=== PATIENT | female | born 1975 | race Caucasian/White ===

== ENCOUNTER 2016-07-20 22:26 | Emergency (ER) | payer MEDICAID ==
[~2016-07-20] VITALS: Ht 165.1 cm; Wt 72.6 kg
[~2016-07-20 22:26] MED LIST: CEPH500C2 PO; FERR-57 PO
[2016-07-20 22:30] VITALS: BP 147/94; PULSE 87; RESP 16; TEMP 98.1; O2SAT 99
--- NOTE | 2016-07-20 22:30 | NUR ---
Patient to ER bed 7 to gown for evaluation. Side rails up. Report given to Kelly WARD.
--- NOTE | 2016-07-20 22:41 | NUR ---
Patient to ER C/O severe headache 10/10 occipital area for the past week "on and off" radiating to lower back with tingling posterior thighs and right arm pain, also C/O mild photophobia and weakness. Patient states that she had these episodes in the past. Patient denies N/V, afebrile, denies blurry vision. AAOx4, unlabored breathing, no signs of acute distress.
[2016-07-20 23:23] LABS: BILIRUBIN,URINE NEGATIVE (NEGATIVE); BLOOD, URINE NEGATIVE (NEGATIVE); CLARITY/URINE CLEAR (CLEAR); COLOR,URINE YELLOW (YELLOW); GLUCOSE,URINE NEGATIVE (NEGATIVE); KETONES,URINE NEGATIVE (NEGATIVE); LEUKOCYTE ESTERASE ,URINE NEGATIVE (NEGATIVE); NITRITE, URINE NEGATIVE (NEGATIVE); PH,URINE 7.5 (5.0-8.0); PROTEIN URINE NEGATIVE (NEGATIVE); UROBILINOGEN,URINE 0.2 (0.2-1.0)
--- NOTE | 2016-07-20 23:30 | NUR ---
Dr. Carver at bedside to examine pt and discuss plan of care.
--- NOTE | 2016-07-20 23:38 | NUR ---
# 22 gauge angiocath placed to left hand. Use of asceptic technique. Opsite placed over site. Blood return noted. Flushed with 10 cc of normal saline. No evidence of infiltration noted. Patient tolerated well.
[2016-07-20] MEDS ORDERED: NACL 0.9% 1,000 ML IV ONE (23:45)
[2016-07-20] MEDS ORDERED: DIPHENHYDRAMINE INJ 50 MG/ML VIAL IVP ONE (23:45)
[2016-07-20] MEDS ORDERED: PROCHLORPERAZINE EDISYLATE 10 MG/2 ML VIAL IVP ONE (23:45)
--- NOTE | 2016-07-21 00:19 | NUR ---
ER MD Carver at bedside discussing plan of care
[2016-07-21 01:03] VITALS: BP 136/81; PULSE 74; RESP 16; TEMP 97.9; O2SAT 98
--- NOTE | 2016-07-21 01:03 | NUR ---
Patient given written and verbal discharge instructions and verbalizes understanding. ER MD Carver discussed with patient the results and treatment provided. Patient in stable condition. ID arm band removed. IV catheter removed intact and dressing applied, no active bleeding. Rx of norco & motrin given. Patient educated on pain management and to follow up with PMD. Pain Scale 0/10. Opportunity for questions provided and answered.
== END 2016-07-21 01:03 | disposition home or self-care (01) ==
LOC: SED 22:26
DX: R51 Headache (principal); R11.2 Nausea with vomiting, unspecified
CPT/HCPCS: 81003; 96361; 96374; 96375; 99284; J0780; J1200; J7030 ×2

== ENCOUNTER 2018-07-06 17:08 | Emergency (ER) | payer MEDICAID ==
[~2018-07-06] VITALS: Ht 165.1 cm; Wt 72.6 kg
[2018-07-06 17:17] VITALS: BP_SYST 151
[2018-07-06 18:07] VITALS: BP_SYST 133
== END 2018-07-06 18:28 | disposition home or self-care (01) ==
LOC: SED 17:08
DX: N39.0 Urinary tract infection, site not specified (principal); I10 Essential (primary) hypertension
CPT/HCPCS: 99283

== ENCOUNTER 2020-01-08 20:17 | Emergency (ER) | payer MEDICAID ==
[~2020-01-08] VITALS: Ht 165.1 cm; Wt 74.8 kg
[~2020-01-08 20:17] MED LIST changes: -CEPH500C2 PO; +PROV10 PO
[2020-01-08 20:39] VITALS: BP_SYST 153
[2020-01-08] MEDS: NACL 0.9% 1,000 ML IV ONE (21:15)
[2020-01-08 22:06] LABS: BASOPHILS % (AUTO) 0.6 % (0.0-2.0); EOSINOPHILS # (AUTO) 0.1 K/uL (0.0-0.4); EOSINOPHILS % (AUTO) 1.1 % (0.0-4.0); HEMATOCRIT 36.8 % (36-48); HEMOGLOBIN 12.4 g/dL (12.0-16.0); LYMPHOCYTES # (AUTO) 1.7 K/uL (1.0-5.5); LYMPHOCYTES % (AUTO) 26.9 % (20.5-51.5); MEAN CORPUSCULAR HEMOGLOBIN 30 pg (27-31); MEAN CORPUSCULAR HGB CONC 34 % (32-36); MEAN CORPUSCULAR VOLUME 90 fL (79.0-98.0); MONOCYTES # (AUTO) 0.4 K/uL (0.0-1.0); MONOCYTES % (AUTO) 6.8 % (1.7-9.3); NEUTROPHILS % (AUTO) 64.6 % (40.0-70.0); PLATELET COUNT (AUTO) 223 K/uL (130-430); RED CELL DISTRIBUTION WIDTH 13.9 % (9.0-15.0); WHITE BLOOD COUNT (AUTO) 6.2 K/uL (4.8-10.8)
[2020-01-08 22:08] LABS: CALCIUM 8.7 mg/dL (8.4-11.0); CREATININE 0.88 mg/dL (0.55-1.30); POTASSIUM 3.9 mmol/L (3.5-5.1)
[2020-01-08 22:14] LABS: ALBUMIN 3.7 g/dL (3.4-4.8); TOTAL BILIRUBIN 0.5 mg/dL (0.0-1.0)
[2020-01-08 22:56] LABS: BILIRUBIN,URINE NEGATIVE (NEGATIVE); BLOOD, URINE 3+ (NEGATIVE); CLARITY/URINE TURBID (CLEAR); COLOR,URINE RED (YELLOW); GLUCOSE,URINE NEGATIVE (NEGATIVE); KETONES,URINE NEGATIVE (NEGATIVE); LEUKOCYTE ESTERASE ,URINE 2+ (NEGATIVE); NITRITE, URINE POSITIVE (NEGATIVE); PROTEIN URINE 2+ (NEGATIVE); UROBILINOGEN,URINE 0.2 (0.2-1.0)
[2020-01-08 23:04] LABS: RBC,URINE >100 /HPF (0-3)
[2020-01-08 23:06] LABS: BACTERIA,URINE MANY /HPF (None Seen)
[2020-01-08] MEDS ORDERED: cefTRIAXone 1 GM VIAL ONE (23:45)
[2020-01-08] MEDS: cefTRIAXone 1 GM in D5W 50 ML IV ONE (23:49)
[2020-01-09 01:47] VITALS: BP_SYST 128
== END 2020-01-09 01:47 | disposition home or self-care (01) ==
LOC: SED 20:17
DX: N93.9 Abnormal uterine and vaginal bleeding, unspecified (principal); N39.0 Urinary tract infection, site not specified; I10 Essential (primary) hypertension; Z88.5 Allergy status to narcotic agent
CPT/HCPCS: 36415; 76830-TC; 76857; 80053; 81000-TC; 81025; 85025; 87086; 96365; 99284; J0696

== ENCOUNTER 2020-01-27 18:02 | Emergency (ER) | payer MEDICAID ==
[~2020-01-27] VITALS: Ht 165.1 cm; Wt 72.6 kg
[2020-01-27 18:32] VITALS: BP_SYST 162
--- NOTE | 2020-01-27 18:40 | NUR ---
Patient triaged and placed in waiting room. VSS and patient appears in no acute distress at this time. Accompanied by self , awaiting available bed, and MD notified of need for MSE.
[2020-01-27 19:14] LABS: BASOPHILS % (AUTO) 0.6 % (0.0-2.0); EOSINOPHILS # (AUTO) 0.1 K/uL (0.0-0.4); EOSINOPHILS % (AUTO) 2.3 % (0.0-4.0); HEMATOCRIT 33.9 % (36-48); HEMOGLOBIN 11.2 g/dL (12.0-16.0); LYMPHOCYTES # (AUTO) 1.2 K/uL (1.0-5.5); MEAN CORPUSCULAR HEMOGLOBIN 29 pg (27-31); MEAN CORPUSCULAR HGB CONC 33 % (32-36); MEAN CORPUSCULAR VOLUME 89 fL (79.0-98.0); MONOCYTES # (AUTO) 0.4 K/uL (0.0-1.0); MONOCYTES % (AUTO) 9.5 % (1.7-9.3); NEUTROPHILS # (AUTO) 2.8 K/uL (1.8-7.7); NEUTROPHILS % (AUTO) 61.6 % (40.0-70.0); PLATELET COUNT (AUTO) 217 K/uL (130-430); RED BLOOD CELL COUNT(AUTO) 3.81 MIL/uL (4.2-6.2); RED CELL DISTRIBUTION WIDTH 13.6 % (9.0-15.0); WHITE BLOOD COUNT (AUTO) 4.5 K/uL (4.8-10.8)
[2020-01-27 19:17] LABS: CALCIUM 8.8 mg/dL (8.4-11.0); CREATININE 1.21 mg/dL (0.55-1.30)
[2020-01-27 19:23] LABS: ALBUMIN 3.4 g/dL (3.4-4.8); TOTAL BILIRUBIN 0.3 mg/dL (0.0-1.0)
--- NOTE | 2020-01-27 19:56 | NUR ---
Patient to ER bed 3 to gown for evaluation. Side rails up.
--- NOTE | 2020-01-27 20:45 | NUR ---
ER Dr. Villalta at bedside examining patient.
--- NOTE | 2020-01-27 20:47 | NUR ---
pt a&o x4 c/o of vaginal bleeding and left lower quadrant suprapubic abdominal pain that has come and gone since she was here on the 07 of January. pt had an ultrasound this morning in [place], dx dysfunctional uterine bleeding, cyst. pt reports soaking through 2 pads today. pt is yi speaking.
[2020-01-27] MEDS ORDERED: NACL 0.9% 1,000 ML IV ONE (20:57)
[2020-01-27] MEDS ORDERED: KETOROLAC TROMETHAMINE 30 MG VIAL IVP ONE (21:00)
--- NOTE | 2020-01-27 21:03 | NUR ---
lab at bedside.
[2020-01-27 21:27] LABS: BILIRUBIN,URINE NEGATIVE (NEGATIVE); BLOOD, URINE 3+ (NEGATIVE); GLUCOSE,URINE NEGATIVE (NEGATIVE); KETONES,URINE NEGATIVE (NEGATIVE); LEUKOCYTE ESTERASE ,URINE TRACE (NEGATIVE); NITRITE, URINE NEGATIVE (NEGATIVE); PROTEIN URINE 2+ (NEGATIVE); UROBILINOGEN,URINE 0.2 (0.2-1.0)
[2020-01-27 21:29] LABS: INR 0.9 (0.8-1.2); PROTHROMBIN TIME 9.4 SECS (9.5-12.5)
[2020-01-27 21:30] LABS: CLARITY/URINE HAZY (CLEAR); COLOR,URINE RED (YELLOW)
--- NOTE | 2020-01-27 21:30 | NUR ---
# 20 gauge angiocath placed to RAC. Use of asceptic technique. Opsite placed over site. Blood return noted. Flushed with 10 cc of normal saline. No evidence of infiltration noted. Patient tolerated well.
[2020-01-27 21:32] LABS: BACTERIA,URINE FEW /HPF (None Seen); RBC,URINE >100 /HPF (0-3)
[2020-01-27 21:33] LABS: MUCUS,URINE None Seen /LPF (None Seen)
--- NOTE | 2020-01-27 21:39 | NUR ---
urine negative prior to administration of toradol 30mg IVP.
--- NOTE | 2020-01-27 22:13 | NUR ---
pt reports pain decreased to a 4 out of 10 after medication administration.
--- NOTE | 2020-01-27 23:30 | NUR ---
pt ambulated to restroom with steady gait.
--- NOTE | 2020-01-28 00:34 | NUR ---
Patient given written and verbal discharge instructions and verbalizes understanding. ER MD discussed with patient the results and treatment provided. Patient in stable condition. ID arm band removed. IV catheter removed intact and dressing applied, no active bleeding. Rx of provera and ibuprofen given. Patient educated on pain management and to follow up with PMD. Pain Scale 0/10. Opportunity for questions provided and answered. Medication side effect fact sheet provided.
[2020-01-28 00:35] VITALS: BP_SYST 126
== END 2020-01-28 00:34 | disposition home or self-care (01) ==
LOC: SED 18:02
DX: N93.8 Other specified abnormal uterine and vaginal bleeding (principal); R10.2 Pelvic and perineal pain; I10 Essential (primary) hypertension; Z88.6 Allergy status to analgesic agent
CPT/HCPCS: 36415; 80053; 81000; 81025; 85025; 85610; 85730; 86900; 86901; 96361 ×2; 96374; 99283; J1885; J7030

== ENCOUNTER 2021-08-01 23:41 | Emergency (ER) | payer MEDICAID ==
[~2021-08-01] VITALS: Ht 165.1 cm; Wt 68.0 kg
[~2021-08-01 23:41] MED LIST changes: +MEDR10TA72 PO; -PROV10 PO
[2021-08-02 00:24] VITALS: BP_SYST 149
--- NOTE | 2021-08-02 00:24 | NUR ---
Patient came to the ER with complaints of rt eye abnormality. Reports she woke up with redness to the right eye. Reports same symptom before but it involved the left eye. Does report associated headache but no other fevers or flulike symptoms. The symptoms are constant. Reports high diastolic BP at home. Patient breathing easy, not in any distress. Patient ambulates with steady gait. ER MD to evaluate.
--- NOTE | 2021-08-02 00:36 | NUR ---
Patient triaged and placed in waiting room. VS checked and patient appears in no acute distress at this time. Accompanied by family, awaiting available bed, and MD notified of need for MSE.
--- NOTE | 2021-08-02 02:04 | NUR ---
ER Dr. Armando in triage examining patient.
[2021-08-02 02:55] VITALS: BP_SYST 145
--- NOTE | 2021-08-02 02:55 | NUR ---
Patient given written and verbal discharge instructions and verbalizes understanding. ER MD discussed with patient the care provided. Patient in stable condition. ID arm band removed. No Rx given. Patient educated on pain management and to follow up with PMD. Opportunity for questions provided and answered.
== END 2021-08-02 02:55 | disposition home or self-care (01) ==
LOC: SED 23:41
DX: H11.31 Conjunctival hemorrhage, right eye (principal)
CPT/HCPCS: 99281

== ENCOUNTER 2022-02-03 03:03 | Emergency (ER) | payer MEDICAID ==
[~2022-02-03] VITALS: Ht 167.6 cm; Wt 56.7 kg
[2022-02-03 03:05] VITALS: BP_SYST 123
[2022-02-03] MEDS ORDERED: LORazepam 2 MG/ML VIAL IM ONE (03:30)
[2022-02-03 04:20] VITALS: BP_SYST 121
== END 2022-02-03 03:45 | disposition home or self-care (01) ==
LOC: SED 03:03
DX: F41.9 Anxiety disorder, unspecified (principal); R00.2 Palpitations; R06.02 Shortness of breath; I10 Essential (primary) hypertension; Z88.6 Allergy status to analgesic agent; Z79.899 Other long term (current) drug therapy
CPT/HCPCS: 99283; 96372; J2060

== ENCOUNTER 2022-07-26 16:46 | Inpatient (IN) | payer MEDICAID ==
[~2022-07-26] VITALS: Ht 165.1 cm; Wt 59.1 kg
[~2022-07-26 16:46] MED LIST changes: +FAMO-132 PO; +ONDA-8 TL
[2022-07-26 17:05] VITALS: BP_SYST 133
[2022-07-26] MEDS ORDERED: KETOROLAC TROMETHAMINE 60 MG/2 ML VIAL IM ONE (19:15)
[2022-07-26 19:26] LABS: BILIRUBIN,URINE NEGATIVE (NEGATIVE); BLOOD, URINE NEGATIVE (NEGATIVE); CLARITY/URINE CLEAR (CLEAR); COLOR,URINE YELLOW (YELLOW); GLUCOSE,URINE NEGATIVE (NEGATIVE); KETONES,URINE 1+ (NEGATIVE); LEUKOCYTE ESTERASE ,URINE NEGATIVE (NEGATIVE); NITRITE, URINE NEGATIVE (NEGATIVE); PROTEIN URINE TRACE (NEGATIVE); UROBILINOGEN,URINE 0.2 (0.2-1.0)
[2022-07-26 19:27] LABS: HCG,QUAL RESULT NEGATIVE (NEGATIVE)
[2022-07-26] MEDS ORDERED: ONDANSETRON HCL 4 MG/2 ML VIAL IVP ONE (19:30)
[2022-07-26] MEDS ORDERED: PANTOPRAZOLE SODIUM 40 MG/VIAL (PROTONIX) IVP ONE (19:30)
[2022-07-26] MEDS ORDERED: NACL 0.9% 1,000 ML IV ONE (19:30)
[2022-07-26] MEDS ORDERED: KETOROLAC TROMETHAMINE 30 MG VIAL IVP ONE (19:30)
[2022-07-26 19:32] LABS: BACTERIA,URINE FEW /HPF (None Seen); MUCUS,URINE None Seen /LPF (None Seen); RBC,URINE 0-3 /HPF (0-3); WBC,URINE NONE SEEN /HPF (0-3)
[2022-07-26] MEDS ORDERED: ONDA-8 TL (21:08)
[2022-07-26] MEDS ORDERED: OMEP40CA20 PO (21:08)
[2022-07-26] MEDS ORDERED: LIDOCAINE VISCOUS 2%, 15 ML UDC MM ONE (21:45)
[2022-07-26] MEDS ORDERED: MAG-AL HYDROX/SIMETH 30 ML UDC PO ONE (21:45)
[2022-07-26] MEDS ORDERED: DICYCLOMINE HCL 10 MG CAPSULE PO ONE (21:45)
[2022-07-26] MEDS ORDERED: BELLADONNA ALKALOIDS/PHENOBARB 5 ML UDC PO ONE (21:45)
[2022-07-26] MEDS ORDERED: DICYCLOMINE HCL 10 MG CAPSULE ONE (21:59)
[2022-07-26] MEDS ORDERED: KETOROLAC TROMETHAMINE 15 MG VIAL IVP ONE (23:15)
[2022-07-26 23:48] LABS: BASOPHILS # (AUTO) 0.1 K/uL (0.0-0.2); BASOPHILS % (AUTO) 0.4 % (0.0-2.0); HEMATOCRIT 43.9 % (36-48); HEMOGLOBIN 14.8 g/dL (12.0-16.0); LYMPHOCYTES # (AUTO) 0.5 K/uL (1.0-5.5); LYMPHOCYTES % (AUTO) 4.3 % (20.5-51.5); MEAN CORPUSCULAR HEMOGLOBIN 28 pg (27-31); MEAN CORPUSCULAR HGB CONC 34 % (32-36); MEAN CORPUSCULAR VOLUME 84 fL (79.0-98.0); MONOCYTES # (AUTO) 0.9 K/uL (0.0-1.0); MONOCYTES % (AUTO) 7.6 % (1.7-9.3); NEUTROPHILS # (AUTO) 10.5 K/uL (1.8-7.7); NEUTROPHILS % (AUTO) 87.7 % (40.0-70.0); PLATELET COUNT (AUTO) 59 K/uL (130-430); RED BLOOD CELL COUNT(AUTO) 5.25 MIL/uL (4.2-6.2); RED CELL DISTRIBUTION WIDTH 13.9 % (9.0-15.0); WHITE BLOOD COUNT (AUTO) 11.9 K/uL (4.8-10.8)
[2022-07-27 00:17] LABS: CALCIUM 8.6 mg/dL (8.4-11.0); CREATININE 1.24 mg/dL (0.55-1.30)
[2022-07-27 00:21] LABS: ALBUMIN 3.4 g/dL (3.4-4.8); TOTAL BILIRUBIN 2.3 mg/dL (0.0-1.0)
[2022-07-27] MEDS: D5NS 1,000 ML IV SCH ×3 (04:45→23:43)
[2022-07-27] MEDS ORDERED: PIPERACILLIN/TAZO 3.375/DEX-IS 50 ML IV ONE (09:00)
[2022-07-27] MEDS ORDERED: ZOLPIDEM TARTRATE 5 MG TABLET PO PRN (10:00)
[2022-07-27] MEDS ORDERED: DOCUSATE SODIUM 100 MG/10 ML UDC PO PRN (10:00)
[2022-07-27] MEDS ORDERED: guaiFENesin/DEXTROMETHORPHAN 10 ML UDC PO PRN (10:00)
[2022-07-27] MEDS ORDERED: ACETAMINOPHEN 500 MG TABLET PO PRN (10:00)
[2022-07-27] MEDS ORDERED: POTASSIUM CHLORIDE 40 MEQ, LIDOCAINE JECT 2% PF 100 MG 50 MG in NS 250 ML IV PRN (11:00)
[2022-07-27 11:39] LABS: PROTHROMBIN TIME 10.4 SECS (9.5-12.5)
[2022-07-27] MEDS ORDERED: PIPERACILLIN/TAZOBACTAM 3.375 GM/VIAL (ZOSYN) IV ONE ×3 (11:39→23:22)
[2022-07-27 11:46] LABS: FREE T4 (FREE THYROXINE) 1.1 ng/dL (0.6-1.6); PHOSPHORUS 2.9 mg/dL (2.7-4.5); THYROID STIMULATING HORMONE 0.71 uIu/mL (0.34-4.82)
[2022-07-27] MEDS: PIPERACILLIN/TAZO 3.375/DEX-IS 50 ML IV SCH ×2 (18:24→23:43)
[2022-07-27] MEDS ORDERED: KETOROLAC TROMETHAMINE 30 MG VIAL ONE (18:30)
[2022-07-27] MEDS: KETOROLAC TROMETHAMINE 30 MG VIAL IVP PRN (18:33)
[2022-07-27 20:42] VITALS: BP_SYST 155
[2022-07-28] MEDS: KETOROLAC TROMETHAMINE 30 MG VIAL IVP PRN (01:24)
[2022-07-28 01:30] VITALS: BP_SYST 147
[2022-07-28] MEDS: D5NS 1,000 ML IV SCH ×3 (04:00→20:00)
[2022-07-28] MEDS: PIPERACILLIN/TAZO 3.375/DEX-IS 50 ML IV SCH ×2 (05:27→13:56)
[2022-07-28] MEDS: ONDANSETRON HCL 4 MG/2 ML VIAL IVP PRN ×3 (05:31→20:14)
[2022-07-28 06:48] LABS: BASOPHILS # (AUTO) 0.1 K/uL (0.0-0.2); BASOPHILS % (AUTO) 0.6 % (0.0-2.0); EOSINOPHILS # (AUTO) 0.2 K/uL (0.0-0.4); EOSINOPHILS % (AUTO) 1.8 % (0.0-4.0); HEMATOCRIT 34.4 % (36-48); HEMOGLOBIN 11.8 g/dL (12.0-16.0); LYMPHOCYTES # (AUTO) 1.8 K/uL (1.0-5.5); LYMPHOCYTES % (AUTO) 21.1 % (20.5-51.5); MEAN CORPUSCULAR HEMOGLOBIN 29 pg (27-31); MEAN CORPUSCULAR HGB CONC 34 % (32-36); MEAN CORPUSCULAR VOLUME 83 fL (79.0-98.0); MONOCYTES # (AUTO) 0.9 K/uL (0.0-1.0); MONOCYTES % (AUTO) 10.6 % (1.7-9.3); NEUTROPHILS # (AUTO) 5.7 K/uL (1.8-7.7); NEUTROPHILS % (AUTO) 65.9 % (40.0-70.0); RED BLOOD CELL COUNT(AUTO) 4.13 MIL/uL (4.2-6.2); WHITE BLOOD COUNT (AUTO) 8.7 K/uL (4.8-10.8)
[2022-07-28] MEDS ORDERED: LISI10TA29 PO (07:07)
[2022-07-28] MEDS ORDERED: HYDR-3919 PO (07:07)
[2022-07-28] MEDS ORDERED: AMLO5TAB4 PO (07:07)
[2022-07-28 07:46] VITALS: BP_SYST 153
[2022-07-28 08:37] LABS: PLATELET COUNT (AUTO) 23 K/uL (130-430)
[2022-07-28 09:21] LABS: ALBUMIN 3.2 g/dL (3.4-4.8); BILIRUBIN,DIRECT 0.3 mg/dL (0.0-0.3); TOTAL BILIRUBIN 1.2 mg/dL (0.0-1.0)
[2022-07-28 11:40] VITALS: BP_SYST 158
[2022-07-28] MEDS ORDERED: DIPHENHYDRAMINE INJ 50 MG/ML VIAL IVP ONE (20:30)
[2022-07-28] MEDS ORDERED: ACETAMINOPHEN 500 MG TABLET PO ONE (20:30)
[2022-07-28] MEDS ORDERED: predniSONE 10 MG TABLET PO ONE (20:30)
[2022-07-28] MEDS: metroNIDAZOLE 500 mg/NS 100 ML IV SCH (23:52)
[2022-07-29] VITALS (8 sets, daily range): BP systolic 130–198
[2022-07-29] MEDS ORDERED: LISINOPRIL 10 MG TABLET (PRINIVIL) PO ONE (00:20)
[2022-07-29] MEDS ORDERED: amLODIPine BESYLATE 10 MG TABLET PO ONE (00:20)
[2022-07-29] MEDS: D5NS 1,000 ML IV SCH ×2 (04:42→11:52)
[2022-07-29] MEDS: metroNIDAZOLE 500 mg/NS 100 ML IV SCH ×2 (05:29→11:52)
[2022-07-29 07:08] LABS: BASOPHILS % (AUTO) 0.6 % (0.0-2.0); EOSINOPHILS % (AUTO) 0.1 % (0.0-4.0); HEMATOCRIT 33.9 % (36-48); LYMPHOCYTES # (AUTO) 0.7 K/uL (1.0-5.5); MEAN CORPUSCULAR HEMOGLOBIN 29 pg (27-31); MEAN CORPUSCULAR HGB CONC 35 % (32-36); MEAN CORPUSCULAR VOLUME 82 fL (79.0-98.0); MONOCYTES # (AUTO) 0.3 K/uL (0.0-1.0); MONOCYTES % (AUTO) 4.1 % (1.7-9.3); NEUTROPHILS # (AUTO) 6.8 K/uL (1.8-7.7); NEUTROPHILS % (AUTO) 86.2 % (40.0-70.0); PLATELET COUNT (AUTO) 63 K/uL (130-430); RED BLOOD CELL COUNT(AUTO) 4.12 MIL/uL (4.2-6.2); RED CELL DISTRIBUTION WIDTH 13.9 % (9.0-15.0); WHITE BLOOD COUNT (AUTO) 7.9 K/uL (4.8-10.8)
[2022-07-29 07:22] LABS: CALCIUM 8.6 mg/dL (8.4-11.0); CREATININE 0.91 mg/dL (0.55-1.30)
[2022-07-29] MEDS ORDERED: cefTRIAXone 1 GM in D5W 50 ML IV SCH (11:00)
[2022-07-29] MEDS: KETOROLAC TROMETHAMINE 30 MG VIAL IVP PRN (11:53)
[2022-07-29] MEDS ORDERED: PRO40 PO (13:44)
[2022-07-29] MEDS ORDERED: METR-154 PO (13:45)
[2022-07-29 15:46] LABS: BILIRUBIN,URINE NEGATIVE (NEGATIVE); BLOOD, URINE NEGATIVE (NEGATIVE); CLARITY/URINE CLEAR (CLEAR); COLOR,URINE YELLOW (YELLOW); GLUCOSE,URINE NEGATIVE (NEGATIVE); KETONES,URINE 1+ (NEGATIVE); LEUKOCYTE ESTERASE ,URINE NEGATIVE (NEGATIVE); NITRITE, URINE NEGATIVE (NEGATIVE); PH,URINE 6.5 (5.0-8.0); PROTEIN URINE NEGATIVE (NEGATIVE)
[2022-07-30] MEDS ORDERED: LISINOPRIL 10 MG TABLET (PRINIVIL) PO SCH (09:00)
[2022-07-30] MEDS ORDERED: amLODIPine BESYLATE 10 MG TABLET PO SCH (09:00)
[2022-07-30 11:07] LABS: FOLATE (FOLIC ACID) 16.3 ng/mL (>3.0)
== END 2022-07-29 16:23 | disposition home or self-care (01) | DRG 249 ==
LOC: SED 16:46 → SMU 07-27 03:57 → STU 07-29 00:26
PROVIDERS: ADMIT Family Medicine; ATTEND Family Medicine
PROC: 30233R1 Transfusion of Nonautologous Platelets into Peripheral Vein, Percutaneous Approach (ICD-10-PCS; principal; 2022-07-29)
DX: A09 Infectious gastroenteritis and colitis, unspecified (principal); K81.0 Acute cholecystitis; D69.6 Thrombocytopenia, unspecified; I10 Essential (primary) hypertension; N20.0 Calculus of kidney; R74.01 Elevation of levels of liver transaminase levels; Z20.822 Contact with and (suspected) exposure to COVID-19; N28.1 Cyst of kidney, acquired; Z88.5 Allergy status to narcotic agent; Z79.899 Other long term (current) drug therapy
CPT/HCPCS: 36415; 71045; 74181; 76376; 76705; 76856-TC; 78226; 80048; 80053; 80061; 80076; 81000; 81003; 82150; 82607; 82746; 83037; 83690; 83735; 83880; 84100; 84439; 84443; 84703; 85025; 85610-TC; 85730-TC; 86900; 86901; 93005; 96361; 96374; 96375; 96376; 99285; A9537; C9113; J0696; J1200; J1885; J1956; J2001; J2405; J2543; J3480; J3490; J7050; J7060; J7512; P9034; Q9967

== ENCOUNTER 2022-12-13 14:29 | Emergency (ER) | payer MEDICAID ==
[~2022-12-13] VITALS: Ht 172.7 cm; Wt 54.4 kg
[~2022-12-13 14:29] MED LIST changes: +AMLO5TAB4 PO; -FERR-57 PO; +HYDR-3919 PO; +LISI10TA29 PO; +METR-154 PO; +OMEP40CA20 PO; +PRO40 PO
[2022-12-13 14:45] VITALS: BP_SYST 157; PULSE 62; RESP 17; TEMP 97.2; O2SAT 99
[2022-12-13] MEDS ORDERED: KETOROLAC TROMETHAMINE 30 MG VIAL IVP ONE (15:00)
[2022-12-13] MEDS ORDERED: NACL 0.9% 1,000 ML IV ONE (15:00)
[2022-12-13] MEDS ORDERED: PANTOPRAZOLE SODIUM 40 MG/VIAL (PROTONIX) IVP ONE (15:00)
[2022-12-13] MEDS ORDERED: ONDANSETRON HCL 4 MG/2 ML VIAL IVP ONE (15:00)
[2022-12-13 15:14] LABS: BASOPHILS % (AUTO) 0.5 % (0.0-2.0); EOSINOPHILS # (AUTO) 0.1 K/uL (0.0-0.4); EOSINOPHILS % (AUTO) 1.6 % (0.0-4.0); HEMATOCRIT 39.8 % (36-48); HEMOGLOBIN 13.1 g/dL (12.0-16.0); LYMPHOCYTES # (AUTO) 1.6 K/uL (1.0-5.5); LYMPHOCYTES % (AUTO) 18.5 % (20.5-51.5); MEAN CORPUSCULAR HEMOGLOBIN 29 pg (27-31); MEAN CORPUSCULAR HGB CONC 33 % (32-36); MEAN CORPUSCULAR VOLUME 87 fL (79.0-98.0); MONOCYTES # (AUTO) 0.6 K/uL (0.0-1.0); MONOCYTES % (AUTO) 6.8 % (1.7-9.3); NEUTROPHILS # (AUTO) 6.3 K/uL (1.8-7.7); NEUTROPHILS % (AUTO) 72.6 % (40.0-70.0); PLATELET COUNT (AUTO) 225 K/uL (130-430); RED BLOOD CELL COUNT(AUTO) 4.58 MIL/uL (4.2-6.2); RED CELL DISTRIBUTION WIDTH 14.1 % (9.0-15.0); WHITE BLOOD COUNT (AUTO) 8.7 K/uL (4.8-10.8)
[2022-12-13 15:44] LABS: ALANINE AMINOTRANSFERASE 25 U/L (12-78); ALBUMIN 3.7 g/dL (3.4-4.8); ANION GAP 5 (5-15); ASPARTATE AMINOTRANSFERASE 23 U/L (10-37); CALCIUM 8.8 mg/dL (8.4-11.0); CHLORIDE 102 mmol/L (98-107); CREATININE 0.86 mg/dL (0.55-1.30); GFR AFRICAN AMERICAN 91 mL/min (>90); GLUCOSE 92 mg/dL (74-106); TOTAL BILIRUBIN 0.4 mg/dL (0.0-1.0); UREA NITROGEN, BLOOD 18 mg/dL (8-21)
[2022-12-13 16:05] LABS: BILIRUBIN,URINE NEGATIVE (NEGATIVE); BLOOD, URINE NEGATIVE (NEGATIVE); CLARITY/URINE CLEAR (CLEAR); COLOR,URINE YELLOW (YELLOW); GLUCOSE,URINE NEGATIVE (NEGATIVE); KETONES,URINE NEGATIVE (NEGATIVE); LEUKOCYTE ESTERASE ,URINE NEGATIVE (NEGATIVE); NITRITE, URINE NEGATIVE (NEGATIVE); PROTEIN URINE NEGATIVE (NEGATIVE); UROBILINOGEN,URINE 0.2 (0.2-1.0)
[2022-12-13] MEDS ORDERED: cloNIDine HCL 0.1 MG TABLET PO ONE (18:15)
[2022-12-13] MEDS ORDERED: METOCLOPRAMIDE HCL 10 MG/2 ML VIAL IVP ONE (18:15)
[2022-12-13] MEDS ORDERED: DIPHENHYDRAMINE INJ 50 MG/ML VIAL IVP ONE (18:15)
[2022-12-13] MEDS ORDERED: IBUP-1971 PO (18:18)
[2022-12-13] MEDS ORDERED: ONDA-8 TL (18:18)
[2022-12-13 19:26] VITALS: BP_SYST 143; PULSE 82; RESP 16; TEMP 98.5; O2SAT 98
== END 2022-12-13 19:29 | disposition home or self-care (01) ==
LOC: SED 14:29
DX: R51.9 Headache, unspecified (principal); I10 Essential (primary) hypertension; Z88.6 Allergy status to analgesic agent; Z79.899 Other long term (current) drug therapy
CPT/HCPCS: 99285; 96374; 96375; 70450; 71045; 96361; 80053; 83735; 85025; 87040; 87086; 84484; 36415; 93005; 76376; 83605; 81003; J1200; J1885; J2765; J2405; C9113; J7030